=== PATIENT | female | born 1965 | race Caucasian/White ===

== ENCOUNTER 2016-08-22 21:36 | Emergency (ER) | payer OTHER ==
[~2016-08-22] VITALS: Ht 157.5 cm; Wt 45.0 kg
[~2016-08-22 21:36] MED LIST: ALPRAZOLAM0.5 MG PO; ALPRAZOLAM1 MG PO; AUGMENTIN875 MG PO; BACLOFEN10 MG PO; CHERATUSSIN AC473 ML PO; DESYREL100 MG PO; FLEXERIL10 MG PO; LYRICA100 MG PO; MEDROL DOSEPAK4 MG PO; MELATONIN3 MG PO; MOTRIN400 MG PO; NAPROSYN500 MG PO; NORCO 5/3251 TABLET PO; PERCOCET 5/31 TABLET PO; SKELAXIN800 MG PO; TRAZODONE HCL50 MG PO; TYLENOL WITH C1 EACH PO; ULTRAM50 MG PO; VICODIN 5-3001 EACH PO; ZITHROMAX Z-PA250 MG PO; ZOFRAN ODT4 MG PO; ZOLOFT50 MG PO
[2016-08-22 23:24] LABS: HEMATOCRIT 39.8 % (36.0-46.0); MCH 33.1 PG (29.0-34.0); MCHC 34.2 G/DL (30.0-36.0); MCV 96.8 FL (83-99); MEAN PLAT.VOLUME 9.3 uM^3 (9.5-12.4); PLATELET COUNT 236 K/uL (156-360); RBC DIS.WIDTH-CV 12.4 % (11.8-14.6); RBC DIS.WIDTH-SD 42.7 % (39-53); RED BLOOD COUNT 4.11 M/uL (3.80-5.20); WHITE BLOOD COUNT 8.1 K/uL (4.1-10.2)
[2016-08-22 23:33] LABS: CHLORIDE 107 mEq/L (99-109); POTASSIUM 3.6 mEq/L (3.7-5.4); SODIUM 138 mEq/L (136-147)
[2016-08-22 23:36] LABS: GLUCOSE 75 mg/dL (70-99)
[2016-08-22 23:37] LABS: ANION GAP 8 MEQ/L (2-14)
[2016-08-22 23:38] LABS: TOTAL BILIRUBIN 0.2 mg/dL (0.0-1.0)
[2016-08-22 23:39] LABS: ALKALINE PHOSPHATASE 42 IU/L (3-129); GFR ESTIMATE (CALCULATED) > 59 mL/min/
[2016-08-22 23:40] LABS: UREA NITROGEN (BUN) 18 mg/dL (9-23)
[2016-08-22] MEDS ORDERED: FIORICET 50-301 EACH PO (23:44)
[2016-08-22] MEDS ORDERED: ZOFRAN ODT4 MG PO (23:44)
[2016-08-23 00:48] VITALS: BP 129/79
[2016-08-23] MEDS ORDERED: VICODIN 5-3001 EACH PO (22:17)
== END 2016-08-23 00:49 | disposition home or self-care (01) ==
LOC: EME 21:36
PROVIDERS: Nurse Practitioner Family
DX: R51 Headache (principal); H53.149 Visual discomfort, unspecified; J44.9 Chronic obstructive pulmonary disease, unspecified; F17.210 Nicotine dependence, cigarettes, uncomplicated
CPT/HCPCS: 80053; 85027; 99281; 99284; J1200; J2405; J7030

== ENCOUNTER 2016-08-23 19:40 | Emergency (ER) | payer OTHER ==
[~2016-08-23] VITALS: Ht 175.3 cm; Wt 46.0 kg
[~2016-08-23 19:40] MED LIST changes: +FIORICET 50-301 EACH PO
[2016-08-23] MEDS ORDERED: VICODIN 5-3001 EACH PO (22:17)
[2016-08-23 22:28] VITALS: BP 146/84
== END 2016-08-23 22:29 | disposition home or self-care (01) ==
LOC: EME 19:40
DX: G43.909 Migraine, unspecified, not intractable, without status migrainosus (principal); F17.200 Nicotine dependence, unspecified, uncomplicated; Z88.5 Allergy status to narcotic agent; Z88.1 Allergy status to other antibiotic agents; J44.9 Chronic obstructive pulmonary disease, unspecified
CPT/HCPCS: 99281; 99283

== ENCOUNTER 2016-10-28 07:29 | Emergency (ER) | payer OTHER ==
[~2016-10-28] VITALS: Ht 160 cm; Wt 45.6 kg
[2016-10-28 08:12] LABS: HEMATOCRIT 37.5 % (36.0-46.0); MCH 32.6 PG (29.0-34.0); MCHC 33.6 G/DL (30.0-36.0); MCV 96.9 FL (83-99); MEAN PLAT.VOLUME 9.2 uM^3 (9.5-12.4); PLATELET COUNT 219 K/uL (156-360); RBC DIS.WIDTH-CV 12.5 % (11.8-14.6); RBC DIS.WIDTH-SD 44.5 % (39-53); RED BLOOD COUNT 3.87 M/uL (3.80-5.20); WHITE BLOOD COUNT 9.1 K/uL (4.1-10.2)
[2016-10-28 08:36] LABS: ANION GAP 7 MEQ/L (2-14); CHLORIDE 107 MEQ/L (99-109); POTASSIUM 3.7 MEQ/L (3.7-5.4); SAMPLE HEMOLYSIS CHECK 0; SAMPLE ICTERIC CHECK 0; SAMPLE LIPEMIA CHECK 0; SODIUM 140 MEQ/L (136-147)
[2016-10-28 08:56] LABS: GFR ESTIMATE (CALCULATED) > 59 mL/min/; GLUCOSE 87 mg/dL (70-99); UREA NITROGEN (BUN) 21 mg/dL (9-23)
[2016-10-28 09:13] LABS: SERUM ETHYL ALCOHOL < 10 mg/dL
[2016-10-28 09:44] VITALS: BP 95/50
[2016-10-29] MEDS ORDERED: VALIUM5 MG PO (23:42)
[2016-10-29] MEDS ORDERED: NORCO 5/3251 TABLET PO (23:42)
== END 2016-10-28 10:19 | disposition left against medical advice (07) ==
LOC: EME 07:29
PROVIDERS: Nurse Practitioner Family
DX: F41.9 Anxiety disorder, unspecified (principal); M54.5 Low back pain; J44.9 Chronic obstructive pulmonary disease, unspecified; F17.200 Nicotine dependence, unspecified, uncomplicated
CPT/HCPCS: 72110; 80048; 81003; 85027; 93005; 99281; 99284; G0480; J7030

== ENCOUNTER 2016-10-29 21:32 | Emergency (ER) | payer OTHER ==
[~2016-10-29] VITALS: Ht 160 cm; Wt 45.4 kg
[2016-10-29] MEDS ORDERED: NORCO 5/3251 TABLET PO (23:42)
[2016-10-29] MEDS ORDERED: VALIUM5 MG PO (23:42)
[2016-10-30 00:04] VITALS: BP 118/61
== END 2016-10-30 | disposition home or self-care (01) ==
LOC: EXP 21:32 → EME 21:32 → EXP 10-30
DX: M54.5 Low back pain (principal); G89.29 Other chronic pain; M62.830 Muscle spasm of back
CPT/HCPCS: 99281; 99283

== ENCOUNTER 2017-02-17 12:53 | Emergency (ER) | payer OTHER ==
[~2017-02-17] VITALS: Ht 154.9 cm; Wt 49.6 kg
[~2017-02-17 12:53] MED LIST changes: +VALIUM5 MG PO
[2017-02-17] MEDS ORDERED: PERCOCET 5/31 TABLET PO (13:55)
[2017-02-17] MEDS ORDERED: PEN-VEE K,VEET500 MG PO (13:56)
[2017-02-17 14:00] VITALS: BP 130/72
[2017-02-17] MEDS ORDERED: MELATONIN3 MG PO (14:19)
[2017-02-17] MEDS ORDERED: PROMETHAZINE HC25 M1 PO (14:19)
== END 2017-02-17 14:19 | disposition home or self-care (01) ==
LOC: EME 12:53
DX: S02.5XXA Fracture of tooth (traumatic), initial encounter for closed fracture (principal); W51.XXXA Accidental striking against or bumped into by another person, initial encounter; F17.200 Nicotine dependence, unspecified, uncomplicated
CPT/HCPCS: 99281; 99284

== ENCOUNTER 2017-08-29 23:15 | Emergency (ER) | payer OTHER ==
[~2017-08-29] VITALS: Ht 157.5 cm; Wt 49.1 kg
[~2017-08-29 23:15] MED LIST changes: +PEN-VEE K,VEET500 MG PO; +PROMETHAZINE HC25 M1 PO
[2017-08-29 23:23] VITALS: BP 148/85
== END 2017-08-30 01:24 | disposition home or self-care (01) ==
LOC: EXP 23:15 → EME 23:15 → EXP 08-30 01:24
DX: J06.9 Acute upper respiratory infection, unspecified (principal); Z88.0 Allergy status to penicillin; Z88.5 Allergy status to narcotic agent
CPT/HCPCS: 87502; 99281; 99283

== ENCOUNTER 2017-12-22 15:34 | Emergency (ER) | payer OTHER ==
[~2017-12-22] VITALS: Ht 154.9 cm; Wt 47.0 kg
[2017-12-22] MEDS ORDERED: TYLENOL WITH C1 EACH PO (16:55)
[2017-12-22 17:04] VITALS: BP 175/88
== END 2017-12-22 17:05 | disposition home or self-care (01) ==
LOC: EME 15:34
DX: S60.051A Contusion of right little finger without damage to nail, initial encounter (principal); W23.0XXA Caught, crushed, jammed, or pinched between moving objects, initial encounter; Z88.0 Allergy status to penicillin; Z88.5 Allergy status to narcotic agent; Z88.8 Allergy status to other drugs, medicaments and biological substances
CPT/HCPCS: 73130; 99281; 99284

== ENCOUNTER 2018-02-14 07:28 | Emergency (ER) | payer OTHER ==
[~2018-02-14] VITALS: Ht 157.5 cm; Wt 47.5 kg
[2018-02-14 08:46] LABS: HEMATOCRIT 40.7 % (36.0-46.0); HEMOGLOBIN 13.9 G/DL (11.9-15.5); MCH 32.9 PG (29.0-34.0); MCHC 34.2 G/DL (30.0-36.0); MCV 96.4 FL (83-99); PLATELET COUNT 235 K/uL (156-360); RBC DIS.WIDTH-SD 46.3 % (39-53); RED BLOOD COUNT 4.22 M/uL (3.80-5.20); WHITE BLOOD COUNT 8.6 K/uL (4.1-10.2)
[2018-02-14 09:16] LABS: CHLORIDE 107 MEQ/L (99-109); POTASSIUM 4.9 MEQ/L (3.7-5.4); SODIUM 138 MEQ/L (136-147)
[2018-02-14 09:21] LABS: CREATININE 0.5 MG/DL (0.6-1.3); GFR ESTIMATE (CALCULATED) > 59 mL/min/; GLUCOSE 96 mg/dL (70-99); UREA NITROGEN (BUN) 12 mg/dL (9-23)
[2018-02-14 09:45] LABS: APPEARANCE CLEAR ((CLEAR)); BILIRUBIN NEGATIVE; BLOOD NEGATIVE; COLOR YELLOW ((YELLOW)); GLUCOSE (STRIP) NEGATIVE; KETONES NEGATIVE; LEUKOCYTES NEGATIVE; NITRITE NEGATIVE; PROTEIN (STRIP) NEGATIVE; SPECIFIC GRAVITY 1.018 (1.000-1.030); UROBILINOGEN 0.2 MG/DL (0.2-1.0)
[2018-02-14] MEDS ORDERED: FIORICET 50-301 EAC1 PO (10:05)
[2018-02-14] MEDS ORDERED: ZOFRAN ODT4 MG PO (10:05)
[2018-02-14 10:56] VITALS: BP 108/71
== END 2018-02-14 10:56 | disposition home or self-care (01) ==
LOC: EME 07:28
PROVIDERS: Nurse Practitioner Family
DX: R51 Headache (principal); F17.200 Nicotine dependence, unspecified, uncomplicated; J44.9 Chronic obstructive pulmonary disease, unspecified; F32.9 Major depressive disorder, single episode, unspecified; Z86.69 Personal history of other diseases of the nervous system and sense organs; Z98.51 Tubal ligation status; Z88.0 Allergy status to penicillin; Z88.5 Allergy status to narcotic agent; Z88.8 Allergy status to other drugs, medicaments and biological substances
CPT/HCPCS: 71046; 80048; 81003; 85027; 99281; 99284; J2405; J7030